=== PATIENT | male | born 1965 | race Caucasian/White ===

== ENCOUNTER → 2018-04-22 | Outpatient (CLI) | payer OTHER ==
--- NOTE | ~2018-04-22 | 2DMMODE ---
[facility] [address] [place] [address] 2 D/M-MODE ECHOCARDIOGRAM Name: CATHI GUILLAUME Room #: REG LORENA Akins#: [id number] Admission: 04/22/18 Attend Phys: Alfonso Abbott, Discharge: Date of : 61 Date of Service: 04/22/18 1548 Report #: [id number] THIS REPORT FOR: //name// APPROVED REPORT Study performed: 04/22/2018 13:00:47 EXAM: Comprehensive 2D, Doppler, and color-flow Echocardiogram Patient Location: Out-Patient Room #: Echo lab 2 Status: routine BSA: 2.36 HR: 70 bpm BP: 128/82 mmHg Other Information Study Quality: Adequate Indications Diabetes Dilated Ascending Aorta 2D Dimensions RVDd: 41.19 mm LVEF(%): 60.53 (>50%) IVSd: 9.25 (7-11mm) LVOT Diam: 19.69 (18-24mm) LVDd: 48.05 mm PWd: 9.25 (7-11mm) Ascending Ao: 43.45 (22-36mm) LVDs: 32.50 (25-40mm) Aortic Root: 34.67 mm IVC: 18.00 mm Low's LVEF: 60.53 % Volumes Left Atrial Volume (Systole) Single Plane 4CH: 67.14 mL Single Plane 2CH: 49.49 mL LA ESV Index: 29.00 mL/m2 Aortic Valve AoV Peak Brennan.: 2.04 m/s AO Peak Gr.: 16.59 mmHg LVOT Max P.67 mmHg LVOT Max V: 1.08 m/s PAULA Vmax: 1.61 cm2 Mitral Valve E/A Ratio: 1.4 MV Decel. Time: 235.47 ms [facility] [place] [address] 2 D/M-MODE ECHOCARDIOGRAM Name: CATHI GUILLAUME Room #: [facility]#: [id number] Admission: 04/22/18 Attend Phys: Alfonso Abbott, Discharge: Date of : 61 Date of Service: 04/22/18 1548 Report #: [id number] MV E Max Brennan.: 1.13 m/s MV A Brennan.: 0.81 m/s MV PHT: 68.29 ms IVRT: 69.20 ms Pulmonary Valve PV Peak Brennan.: 0.95 m/s PV Peak Gr.: 3.59 mmHg Pulmonary Vein P Vein S: 0.79 m/s P Vein A: 0.28 m/s P Vein D: 0.55 m/s P Vein A Dur.: 115.3 msec P Vein S/D Ratio: 1.44 Left Ventricle The left ventricle is normal size. There is normal LV segmental wall motion. There is normal left ventricular wall thickness. The left ventricular systolic function is normal. The left ventricular ejection fraction is within the normal range. LVEF is 55-60%. The left ventricular diastolic function is normal. Right Ventricle The right ventricle is normal size. The right ventricular systolic function is normal. Atria The left atrium size is normal. The right atrium size is normal. Aortic Valve The aortic valve is normal in structure. No aortic regurgitation is present. There is no aortic valvular stenosis. Mitral Valve The mitral valve is normal in structure. There is no mitral valve regurgitation noted. No evidence of mitral valve stenosis. Tricuspid Valve The tricuspid valve is normal in structure. There is no tricuspid valve regurgitation noted. Pulmonic Valve The pulmonary valve is normal in structure. There is no pulmonic valvular regurgitation. Great Vessels The aortic root mildly dilated 4.5 cm Ascending aorta is dilated [facility] [address] [place] [address] 2 D/M-MODE ECHOCARDIOGRAM Name: CATHI GUILLAUME Room #: REG CL Tashi#: [id number] Admission: 04/22/18 Attend Phys: Alfonso Abbott, Discharge: Date of : 61 Date of Service: 04/22/18 1548 Report #: [id number] measuring 4.5 cm IVC is normal in size and collapses >50% with inspiration. Pericardium There is no pericardial effusion. <Conclusion> The left ventricle is normal size. LVEF is 55-60%. The left ventricular diastolic function is normal. The right ventricle is normal size. The left atrium size is normal. The aortic valve is normal in structure. There is no mitral valve regurgitation noted. There is no tricuspid valve regurgitation noted. The aortic root mildly dilated 4.5 cm There is no pericardial effusion. <ELECTRONICALLY SIGNED> By: Alfonso Abbott MD, [facility] 04/22/18 1548 1548 1548 Alfonso Abbott MD, FACC /INF
== END ==
LOC: CV 08:58
DX: E11.9 Type 2 diabetes mellitus without complications (principal); I77.810 Thoracic aortic ectasia; G47.33 Obstructive sleep apnea (adult) (pediatric)

== ENCOUNTER → 2020-08-02 | Outpatient (CLI) | payer OTHER | LOC: SJCVCIMAG 05-23 13:07 | PROVIDERS: ATTEND Internal Medicine Cardiovascular Disease | DX: I07.1 Rheumatic tricuspid insufficiency (principal); E11.9 Type 2 diabetes mellitus without complications ==